=== PATIENT | male | born 1950 | race Caucasian/White ===

== ENCOUNTER 2018-01-23 12:57 | Outpatient (CLI) | payer MEDICARE ==
--- NOTE | 2018-01-23 15:17 | CT ---
CT THORACIC SPINE WITHOUT CONTRAST: Date: 01/23/18 HISTORY: Right hip and low back pain. Multiple falls. Previous surgery. COMPARISON: None. TECHNIQUE: CT of the thoracic spine is performed without contrast. Reformatted images are submitted for interpre tation. FINDINGS: There is sclerosis of the inferior end plate of T7, superior end plate of T8, and superior end plate of T9, compatible with Modic change. Thoracic spine vertebral body height is maintained. There is no fracture. No spondylolisthesis or spondylolysis. Visualized mediastinal structures are unremarkable. Dependent atelectatic changes in the lung parench yma. Visualized upper solid organs are unremarkable. No retroperitoneal mass, lymphadenopathy, or hematoma. Sagittal images demonstrate preservation of the neural foramina. Evaluation of the neural foramina is limited by technique. If there is concern for foraminal stenosis, consider MRI. There is no evidence of high grade central canal stenosis throughout the thoracic spine. There is mil d central canal stenosis at T10-T11 due to posterior element hypertrophy. A small focus of air attenu ation likely due to gas associated with a disc in the right subarticular zone is noted. IMPRESSION: Degenerative changes of the thoracic spine with Modic changes at T7-T8 and T8-T9. Nevertheless, there is no evidence of high grade central canal stenosis or high grade neural foraminal narrowing. There is narrowing of the right subarticular zone at T10-T11 due to disc material with associated vacuum di sc phenomenon. POS: [facility]
--- NOTE | 2018-01-23 15:43 | CT ---
CT LUMBAR SPINE WITHOUT CONTRAST: HISTORY: Low back pain. COMPARISON: None. TECHNIQUE: A lumbar spine CT is performed without contrast. Reformatted images are submitted for interpretation . FINDINGS: No evidence of retroperitoneal mass or lymphadenopathy. There is extensive calcification involving t he left renal artery ostium. Additional calcification of the right renal artery ostium is noted. C orrelate for significance with renal function tests. The visualized alimental canal and psoas muscles are unremarkable. There are five lumbar type vertebral bodies. Vertebral body height is maintained. No fracture. Min imal leftward curvature of the lumbar spine, centered at L3-L4. Vacuum disk phenomenon at L3-L4 and at L5-S1. The sacral ala are preserved. There is appropriate fat in the sacral neural foramina. Limited evaluation of the contents of the central spinal canal and neural foramina. T12-L1: No significant central canal stenosis or neural foraminal narrowing. L1-L2: No significant central canal stenosis or neural foraminal narrowing. L2-L3: Mild loss of disk space height. Generalized disk bulge, ligamentum flavum thickening, and fa cet hypertrophy result in mild central canal stenosis. Mild bilateral neural foraminal narrowing. L3-L4: Vacuum disk phenomenon. Broad-based disk bulge, ligamentum flavum thickening, and facet hype rtrophy are present. There is 5 mm of anterolisthesis of L3 upon L4. Severe right and moderate left foraminal narrowing. L4-L5: Generalized disk bulge. There is mild central canal stenosis. Disk material encroaches upon both subarticular zones and likely causes obscuration of bilateral traversing L5 nerve roots. Moder ate bilateral foraminal narrowing. L5-S1: Vacuum disk phenomenon. Generalized disk bulge does not cause any significant stenosis of th e thecal sac. No significant stenosis of either lateral recess. Mild right and moderate left forami nal narrowing. No evidence of a lumbar spine fracture. IMPRESSION: 1. Degenerative changes of the lumbar spine, as above. 2. Severe right foraminal narrowing at L3-L4. 3. Grade 1 anterolisthesis of L3 upon L4. 4. Atherosclerosis, as described above. POS: [facility]
== END 2018-01-23 12:58 | disposition home or self-care (01) ==
LOC: TBSIIMAG 12:57
PROVIDERS: ATTEND Neurological Surgery
DX: M54.5 Low back pain (principal); M54.6 Pain in thoracic spine; M47.896 Other spondylosis, lumbar region; M99.83 Other biomechanical lesions of lumbar region; M43.16 Spondylolisthesis, lumbar region; I12.9 Hypertensive chronic kidney disease with stage 1 through stage 4 chronic kidney disease, or unspecified chronic kidney disease; N18.9 Chronic kidney disease, unspecified; M47.894 Other spondylosis, thoracic region; M48.04 Spinal stenosis, thoracic region
CPT/HCPCS: 72128; 72131